=== PATIENT | male | born 1985 | race Caucasian/White ===

== ENCOUNTER 2022-08-02 00:19 | Emergency (ER) | payer SELFPAY ==
[2022-08-02] MEDS ORDERED: Clindamycin 150 MG CAP ONE (01:13)
== END 2022-08-02 01:25 | disposition home or self-care (01) ==
LOC: BURERS 00:19
DX: L03.90 Cellulitis, unspecified (principal); L01.00 Impetigo, unspecified
CPT/HCPCS: 99283